=== PATIENT | male | born 1955 | race Two or more races ===

== ENCOUNTER 2022-10-26 19:44 | Inpatient (IN) | payer MEDICARE, OTHER ==
[~2022-10-26] VITALS: Ht 152.4 cm; Wt 83.5 kg
[2022-10-26 23:10] VITALS: BP 247/85
[2022-10-26 23:30] VITALS: BP 247/85
--- NOTE | 2022-10-26 23:30 | NUR ---
COOKER MECHANICDIGITAL ASSET SPECIALIST NOTES RECEIVED DIRECT ADMIT FROM [place] VIA AMBULANCE TRANSPORT THIS 67 YO MALE,SPEAK KYRGYZ,UNDERSTAND LITTLE URDU.A/ALERT,ORIENTED X3,NO SOB NOTED.SALINE LOCK RIGHT HAND INTACT AND PATENT.LEGALLY BLIND,NO SKIN ISSUES.WITH LEFT UPPER AV SHUNT FOR HD ACCESS,HAD ONE TODAY LAST FOR 3.5 HOURS.WITH CHIEF COMPLAINTS OF CHEST PAIN POST HD TREATMENT.ABLE TO AMBULATE WITH ASSISTANCE,DENIES CHEST PAIN AT THE MOMENT.BLOOD PRESSURE ON THE HIGH SIDE 247/85,HOSPITALIST NAY MADE AWARE..COPY OF HOME MEDICATIONS FORWARDED TO HOSPITALIST.WILL CONTINUE TO MONITOR STATUS,CALL LIGHT IN REACH,NEEDS ANTICIPATED
[2022-10-27] VITALS: BP 120/64
--- NOTE | 2022-10-27 00:15 | NUR ---
CISCO CERTIFIED INTERNETWORK EXPERT NOTES HOSPITALIST VISIT NAY DUVALL,AT BEDSIDE.WILL CONTINUE TO MONITOR STATUS.
[2022-10-27 00:30] VITALS: BP 120/64
[2022-10-27] MEDS ORDERED: Z GUARD REMEDY 4 OZ OINT TP PRN (00:30)
[2022-10-27] MEDS ORDERED: ONDANSETRON HCL/PF 4 MG/2 ML VIAL IVP PRN (00:30)
[2022-10-27] MEDS ORDERED: hydrALAZINE HCL 50 MG TABLET PO ONE (00:30)
[2022-10-27] MEDS ORDERED: DEXTROSE 50%-WATER 50 ML DISP.SYRIN IV PRN (00:30)
[2022-10-27] MEDS ORDERED: CLONIDINE HCL 0.1 MG TABLET PO ONE (00:30)
[2022-10-27] MEDS ORDERED: HYDROMORPHONE INJ 2 MG/ML DISP.SYRIN IV PRN (00:30)
[2022-10-27] MEDS: NITROGLYCERIN PACKET 1 GM PACKET TOP SCH ×3 (00:44→21:00)
--- NOTE | 2022-10-27 00:44 | NUR ---
CENTRAL SCHEDULER NOTES BP 247/85,HOSPITALIST NAY ORELLANA,WITH NEW ORDER NOTED AND CARRIED OUT. NITRO BID 1GM TOPICAL APPLIED TO LEFT CHEST WALL.
--- NOTE | 2022-10-27 00:45 | NUR ---
SOLID WASTE DIVISION SUPERVISOR NOTES GIVEN CATAPRES 0.1MG PO AND APRESOLINE 50MG PO X 1 DOSE ORDERED.WILL RECHECK IN AN HOUR.
--- NOTE | 2022-10-27 01:00 | NUR ---
STATION INSPECTOR NOTES LATEST BP 120/64,PULSE 85.HOSPITALIST NAY MADE AWARE.
[2022-10-27] MEDS ORDERED: RANO500T3 PO (02:53)
[2022-10-27] MEDS ORDERED: SEVE800T8 PO (02:53)
[2022-10-27] MEDS ORDERED: ATOR40TA PO (02:53)
[2022-10-27] MEDS ORDERED: NITR0.4T48 SL (02:53)
[2022-10-27] MEDS ORDERED: CARV6.252 PO (02:53)
[2022-10-27] MEDS ORDERED: ASPI-1100 PO (02:53)
[2022-10-27] MEDS ORDERED: SIME40DR2 PO (02:53)
[2022-10-27] MEDS ORDERED: CLOP75TA15 PO (02:53)
[2022-10-27] MEDS ORDERED: LOSA100T31 PO (02:53)
[2022-10-27 06:40] LABS: ALANINE AMINOTRANSFERASE 13 U/L (12-78); ALBUMIN 3.9 g/dL (3.4-5.0); ALKALINE PHOSPHATASE 61 U/L (46-116); ASPARTATE AMINOTRANSFERASE 11 U/L (15-37); BILIRUBIN,TOTAL 0.6 mg/dL (0.2-1.0); CALCIUM, SERUM 9.6 mg/dL (8.5-10.1); CARBON DIOXIDE 31 mmol/L (21-32); CHLORIDE 93 mmol/L (98-107); GLUCOSE 180 mg/dL (74-106); MAGNESIUM 2.4 mg/dL (1.8-2.4); POTASSIUM 4.4 mmol/L (3.5-5.1); SODIUM SERUM 136 mmol/L (136-145); TOTAL PROTEIN, SERUM 7.7 g/dL (6.4-8.2); UREA NITROGEN, BLOOD 39 mg/dL (7-18)
[2022-10-27 06:41] LABS: CREATININE 8.7 mg/dL (0.6-1.3)
[2022-10-27 06:42] LABS: BASOPHILS # (AUTO) 0.1 K/uL (0.0-0.2); BASOPHILS % (AUTO) 1.2 % (0.0-2.0); EOSINOPHILS % (AUTO) 11.2 % (0.0-6.0); HEMATOCRIT 35 % (39-51); HEMOGLOBIN 11.5 g/dL (13.5-17.5); LYMPHOCYTES # (AUTO) 1.3 K/uL (0.8-4.8); LYMPHOCYTES % (AUTO) 16.6 % (20.0-44.0); MEAN CORPUSCULAR HGB CONC 33 g/dl (31.0-36.0); MEAN CORPUSCULAR VOLUME 89 fL (80-96); MONOCYTES # (AUTO) 0.6 K/uL (0.1-1.30); MONOCYTES % (AUTO) 7.8 % (2.0-12.0); NEUTROPHILS # (AUTO) 4.9 K/uL (1.8-8.9); NEUTROPHILS % (AUTO) 63.2 % (43.0-81.0); PLATELET COUNT (AUTO) 173 K/uL (150-450); RED BLOOD CELL COUNT(AUTO) 3.94 MIL/uL (4.5-6.0); WHITE BLOOD COUNT (AUTO) 7.8 K/uL (4.3-11.0)
--- NOTE | 2022-10-27 06:42 | NUR ---
FRONT SERVICES AGENT NOTES AWAKE,ON SITTING POSITION THIS TIME ON BED.DENIES CHEST PAIN,BLOOD PRESSURE ELEVATED.DENIES HEADACHE,NO NAUSEA.ASSIST WITH ADL'S,LEGALLY BLIND.CALL LIGHT IN REACH,NEEDS ATTENDED.
[2022-10-27] MEDS: BLOOD SUGAR DIAGNOSTIC 1 EACH STRIP IN SCH ×4 (06:52→21:36)
[2022-10-27] MEDS: hydrALAZINE HCL IV 20 MG VIAL IV PRN (07:08)
--- NOTE | 2022-10-27 07:08 | NUR ---
GAUGE MAKER NOTES LATEST BP 175/60,PULSE-80,MEDICATED WITH APRESOLINE 10MG IV FOR SBP>160. ORDERED.ENDORSED TO SANDRA FELICIANO FOR RAMESH.
--- NOTE | 2022-10-27 07:19 | NUR ---
SLOT SHIFT SUPERVISOR OPENING NOTES RECEIVED PATIENT A/O X 4, ABLE TO MAKE NEEDS KNOWN. PATIENT IS ON OXYGEN AT 2LPM VIA NASAL CANULA, SATURATING AT 99% WITH NO SIGNS OF RESPIRATORY DISTRESS. ,WITH HEPLOCK RIGHT HAND #20G, PATENT AND INTACT. WITH LEFT UPPER ARM AV FISTULA POSITIVE FOR THRILL AND BRUIT. ON EXTERNAL PRODUCT STEWARD: SINUS RHYTHM WITH BBB. SAFETY MEASURES IN PLACE; BED IN LOW, LOCKED POSITION; SIDE RAILS UP X 2, CALL LIGHT WITHIN REACH AT ALL TIMES; WILL CONTINUE WITH PLAN OF CARE.
[2022-10-27 07:39] LABS: CHOLESTEROL 159 mg/dL (<200); HDL CHOLESTEROL 44 mg/dL (40-60); LDL 89 mg/dL (0-99); TRIGLYCERIDES 190 mg/dL (30-150)
[2022-10-27 08:00] VITALS: BP 190/88
[2022-10-27] MEDS: CLOPIDOGREL BISULFATE 75 MG TABLET PO SCH (09:15)
[2022-10-27] MEDS: LOSARTAN POTASSIUM 50 MG TABLET PO SCH (09:17)
[2022-10-27] MEDS: RANOLAZINE 500 MG TAB.ER.12H PO SCH ×2 (09:17→17:38)
[2022-10-27] MEDS: ASPIRIN 81 MG TAB.CHEW PO SCH (09:18)
[2022-10-27] MEDS: CARVEDILOL 6.25 MG TABLET PO SCH ×2 (09:18→17:41)
[2022-10-27] MEDS: SEVELAMER CARBONATE 800 MG POWD.PACK PO SCH ×3 (09:18→17:38)
[2022-10-27] MEDS: PANTOPRAZOLE 40 MG TABLET.DR PO SCH (09:20)
[2022-10-27] MEDS: HEPARIN SODIUM, PORCINE 5000 UNITS/1 ML VIAL SQ SCH ×2 (09:30→20:59)
[2022-10-27] MEDS: METOPROLOL TARTRATE INJ 5 MG/5 ML AMPUL IVP PRN ×3 (11:35→11:45)
[2022-10-27] MEDS ORDERED: METOPROLOL TARTRATE INJ 5 MG/5 ML AMPUL ONE (11:36)
[2022-10-27] MEDS ORDERED: CT SWABBABLE VALVE TRANS SET 1 EA INFUS.SET MC ONE (11:39)
[2022-10-27] MEDS ORDERED: IOHEXOL-350 100 ML VIAL IV ONE (11:39)
[2022-10-27] MEDS ORDERED: IV NS 0.9% 500 ML IV ONE (11:40)
--- NOTE | 2022-10-27 11:58 | NUR ---
/ CTCA / nitroglycerin SL 0.4mg not given d/t patient is on nitro patch.
[2022-10-27 12:00] VITALS: BP 155/73
[2022-10-27] MEDS ORDERED: NITROGLYCERIN 0.4 MG/TAB BOTTLE SL ONE (12:00)
--- NOTE | 2022-10-27 12:05 | NUR ---
CONTROLLER MECHANIC NOTE PATIENT ON RADIOLOGY DEPARTMENT FOR CT ANGIO ORDERED.
[2022-10-27] MEDS: METOPROLOL TARTRATE 50 MG TABLET PO SCH ×2 (14:20→17:40)
--- NOTE | 2022-10-27 14:20 | NUR ---
HAULPAK DRIVER NOTE HEMODIALYSIS DONE ORDERED. 1 LITER OUT.
[2022-10-27 16:00] VITALS: BP_SYST 130; BP_SYST 170; BP_DIAS 60; BP_DIAS 68
[2022-10-27] MEDS: ATORVASTATIN 40 MG TABLET PO SCH (17:41)
--- NOTE | 2022-10-27 18:44 | NUR ---
ASSOCIATE SOFTWARE DEVELOPMENT ENGINEER CLOSING NOTES PATIENT A/O X 4, ABLE TO MAKE NEEDS KNOWN. PATIENT IS ON OXYGEN AT 2LPM VIA NASAL CANULA, SATURATING AT 99% WITH NO SIGNS OF RESPIRATORY DISTRESS. ,WITH HEPLOCK RIGHT HAND #20G, WITH LEFT AC G 20, PATENT AND INTACT. WITH LEFT UPPER ARM AV FISTULA POSITIVE FOR THRILL AND BRUIT. ON EXTERNAL GARBAGE WORKER: SINUS RHYTHM WITH BBB. SAFETY MEASURES IN PLACE; BED IN LOW, LOCKED POSITION; SIDE RAILS UP X 2, CALL LIGHT WITHIN REACH AT ALL TIMES; WILL ENDORSE TO NEXT SHIFT FOR CONTINUITY OF CARE.
[2022-10-27 20:00] VITALS: BP 127/79
--- NOTE | 2022-10-27 20:20 | NUR ---
found patient at he head of the bed in bed an his knees facing the wall and going up and down the wall with his hands pt speaks american In american we asked him if he wants the light off /go to the bathroom / has pain/ his answer is no. able to talk him into sitting in the bed support with pillows call placed to the daughter and asked er to come sit with him for safety, she agreed to come in. /
--- NOTE | 2022-10-27 20:38 | NUR ---
received in bed family at the bed side bed alarm turned onpt smiling and alert skin warm and dry
[2022-10-27] MEDS: SIMETHICONE SUSP 40 MG/0.6 ML BOTTLE PO SCH (21:19)
[2022-10-27] MEDS: INSULIN REGULAR, HUMAN 100 UNIT/ML 3 ML VIAL SQ PRN (21:40)
[2022-10-28] VITALS: BP 133/55
[2022-10-28] MEDS: METOPROLOL TARTRATE 50 MG TABLET PO SCH ×5 (00:21→23:52)
--- NOTE | 2022-10-28 04:19 | NUR ---
CLOSING NOTES: PATIENT IS BLIND SUPPORTIVE FAMILY AFTER FAMILY LEFT LAST NIGHT NOTED HE BECAME RESTLESS AND HAD ODD BEHAVIOR ATTEMPTING TO STAND UP WHILE IN HIS BED FACING THE WALL HE KNELT AT THE HEAD OF THE BED PULLING THE CALL LIGHT OUT OF THE WALL, FAMILY MEMBER CAME AND SAT WITH THE PATIENT UNTIL 3AM SIDE RAILS UP BED ALARM ON FREQ BED CHECKS hd ORDERED FOR THIS AM 8am AND THE PT npo FOR SCHEDULE MRI ABD TODAY ABD ROUND AND ZAIRA BS +
[2022-10-28 05:37] VITALS: BP 184/92
[2022-10-28] MEDS: BLOOD SUGAR DIAGNOSTIC 1 EACH STRIP IN SCH ×4 (05:49→22:06)
[2022-10-28 05:56] LABS: BASOPHILS # (AUTO) 0.1 K/uL (0.0-0.2); EOSINOPHILS % (AUTO) 10.8 % (0.0-6.0); HEMATOCRIT 33 % (39-51); HEMOGLOBIN 11.1 g/dL (13.5-17.5); LYMPHOCYTES # (AUTO) 1.5 K/uL (0.8-4.8); LYMPHOCYTES % (AUTO) 16.1 % (20.0-44.0); MEAN CORPUSCULAR HGB CONC 33 g/dl (31.0-36.0); MEAN CORPUSCULAR VOLUME 89 fL (80-96); MONOCYTES # (AUTO) 0.4 K/uL (0.1-1.30); MONOCYTES % (AUTO) 4.4 % (2.0-12.0); NEUTROPHILS # (AUTO) 6.2 K/uL (1.8-8.9); NEUTROPHILS % (AUTO) 67.7 % (43.0-81.0); PLATELET COUNT (AUTO) 163 K/uL (150-450); RED BLOOD CELL COUNT(AUTO) 3.74 MIL/uL (4.5-6.0); WHITE BLOOD COUNT (AUTO) 9.1 K/uL (4.3-11.0)
[2022-10-28 06:22] LABS: CALCIUM, SERUM 9.5 mg/dL (8.5-10.1); MAGNESIUM 2.4 mg/dL (1.8-2.4); PHOSPHORUS 7.5 mg/dL (2.5-4.9)
[2022-10-28 06:23] LABS: CREATININE 8.7 mg/dL (0.6-1.3)
--- NOTE | 2022-10-28 07:18 | NUR ---
QUALITY ASSURANCE QA LAB TECHNICIAN OPENING NOTES RECEIVED PATIENT A/O X 3, ABLE TO MAKE NEEDS KNOWN. PATIENT IS ON ROOM AIR SATURATING AT 96% WITH NO SIGNS OF RESPIRATORY DISTRESS. ,WITH HEPLOCK RIGHT HAND AND RIGHT AC #20G, PATENT AND INTACT. WITH LEFT UPPER ARM AV FISTULA POSITIVE FOR THRILL AND BRUIT. ON EXTERNAL CLOTH WASHER: SINUS RHYTHM WITH BBB. SAFETY MEASURES IN PLACE; BED IN LOW, LOCKED POSITION; SIDE RAILS UP X 2, CALL LIGHT WITHIN REACH AT ALL TIMES; WILL CONTINUE WITH PLAN OF CARE.
[2022-10-28 08:00] VITALS: BP 185/70
[2022-10-28] MEDS: hydrALAZINE HCL IV 20 MG VIAL IV PRN (08:11)
--- NOTE | 2022-10-28 08:20 | NUR ---
PARAMEDICAL AIDE NOTE HYDRALAZINE IV GIVEN ORDERED. PATIENT ABG'S DONE BY RT. PATIENT PICKED UP FOR CT SCAN ORDERED. IN STABLE CONDITION.
[2022-10-28 08:27] LABS: ABG BASE EXCESS 1.7 mmol/L; ABG OXYGEN SATURATION 77.7 % (92.0-98.5); ABG PCO2 44.7 mmHg (35.0-45.0); ABG PH 7.397 (7.350-7.450); ABG PO2 43.6 mmHg (75.0-100.0); AaDO2 52.6 mmHg; COHb 2.1 % (0.5-1.5); MetHb 0.3 % (0.0-1.5); O2Hb 75.8 % (94.0-97.0); SITE, ABG Right Radial; VENT MODE, BG R/A 21%
[2022-10-28] MEDS ORDERED: IOHEXOL-300 100 ML VIAL IV ONE (08:49)
[2022-10-28] MEDS ORDERED: IV NS 0.9% 250 ML IV ONE (08:49)
[2022-10-28] MEDS: SEVELAMER CARBONATE 800 MG POWD.PACK PO SCH ×3 (09:33→17:28)
[2022-10-28] MEDS: CARVEDILOL 6.25 MG TABLET PO SCH ×2 (09:34→17:29)
[2022-10-28] MEDS: NITROGLYCERIN PACKET 1 GM PACKET TOP SCH ×2 (09:34→22:08)
[2022-10-28] MEDS: CLOPIDOGREL BISULFATE 75 MG TABLET PO SCH (09:35)
[2022-10-28] MEDS: PANTOPRAZOLE 40 MG TABLET.DR PO SCH (09:35)
[2022-10-28] MEDS: RANOLAZINE 500 MG TAB.ER.12H PO SCH ×2 (09:35→17:29)
[2022-10-28] MEDS: ASPIRIN 81 MG TAB.CHEW PO SCH (09:35)
[2022-10-28] MEDS: LOSARTAN POTASSIUM 50 MG TABLET PO SCH (09:35)
[2022-10-28] MEDS: HEPARIN SODIUM, PORCINE 5000 UNITS/1 ML VIAL SQ SCH ×2 (10:30→22:05)
[2022-10-28 12:00] VITALS: BP 175/68
[2022-10-28 16:00] VITALS: BP 101/49
--- NOTE | 2022-10-28 17:00 | NUR ---
PLANT ANATOMY TEACHER CLOSING NOTES PATIENT A/O X 4, ABLE TO MAKE NEEDS KNOWN. PATIENT IS ON OXYGEN AT 2LPM VIA NASAL CANULA, SATURATING AT 99% WITH NO SIGNS OF RESPIRATORY DISTRESS. ,WITH HEPLOCK RIGHT HAND #20G, WITH LEFT AC G 20, PATENT AND INTACT. WITH LEFT UPPER ARM AV FISTULA POSITIVE FOR THRILL AND BRUIT. ON EXTERNAL DIE ENGRAVER: SINUS RHYTHM WITH BBB. SAFETY MEASURES IN PLACE; BED IN LOW, LOCKED POSITION; SIDE RAILS UP X 2, CALL LIGHT WITHIN REACH AT ALL TIMES; WILL ENDORSE TO NEXT SHIFT FOR CONTINUITY OF CARE. Addendum: 10/28/22 at 1948 by SANDRA YOUNG RN CHARTING FOR 1899
[2022-10-28] MEDS: ATORVASTATIN 40 MG TABLET PO SCH (17:29)
--- NOTE | 2022-10-28 18:30 | NUR ---
DIRECTOR GLOBAL MEDICAL AFFAIRS NOTE SECURED CONSENT FOR PROCEDURE RELAYED BY RHONDA OF HISTOPATHOLOGIST. CONSENT ATTACHED TO CHART.
--- NOTE | 2022-10-28 19:00 | NUR ---
received Mr. Fya in bed alert to family at his bedside speaking greek pt is blind bed alarm is on family member is willing to stay the night for the patient's safety and comfort Mr. Fay at night becomes confused and will stand up in his bed attempt to get OOB unassisted skin warm and dry left arm AV shunt +thrill
[2022-10-28 20:00] VITALS: BP 143/60
[2022-10-28] MEDS: ACETAMINOPHEN 325 MG TABLET PO PRN (20:04)
--- NOTE | 2022-10-28 21:23 | NUR ---
amb to the bathroom with nurse for assist d/t his blindness good form BM hands cleaned and assisted back to be alarm on family member at the bedside
[2022-10-28] MEDS: SIMETHICONE SUSP 40 MG/0.6 ML BOTTLE PO SCH (22:06)
[2022-10-28] MEDS: INSULIN REGULAR, HUMAN 100 UNIT/ML 3 ML VIAL SQ PRN (22:16)
[2022-10-29] VITALS: BP 176/37
[2022-10-29 01:12] VITALS: BP 176/37
[2022-10-29] MEDS: hydrALAZINE HCL IV 20 MG VIAL IV PRN ×2 (01:16→08:34)
[2022-10-29] MEDS: METOPROLOL TARTRATE 50 MG TABLET PO SCH ×3 (05:32→17:11)
[2022-10-29 05:49] LABS: BASOPHILS # (AUTO) 0.1 K/uL (0.0-0.2); BASOPHILS % (AUTO) 0.8 % (0.0-2.0); HEMATOCRIT 32 % (39-51); HEMOGLOBIN 10.4 g/dL (13.5-17.5); LYMPHOCYTES # (AUTO) 1.4 K/uL (0.8-4.8); LYMPHOCYTES % (AUTO) 19.1 % (20.0-44.0); MEAN CORPUSCULAR HGB CONC 33 g/dl (31.0-36.0); MEAN CORPUSCULAR VOLUME 90 fL (80-96); MONOCYTES # (AUTO) 0.6 K/uL (0.1-1.30); NEUTROPHILS # (AUTO) 3.7 K/uL (1.8-8.9); NEUTROPHILS % (AUTO) 49.1 % (43.0-81.0); PLATELET COUNT (AUTO) 145 K/uL (150-450); RED BLOOD CELL COUNT(AUTO) 3.56 MIL/uL (4.5-6.0); WHITE BLOOD COUNT (AUTO) 7.5 K/uL (4.3-11.0)
[2022-10-29] MEDS: BLOOD SUGAR DIAGNOSTIC 1 EACH STRIP IN SCH ×4 (06:37→21:28)
[2022-10-29 06:39] LABS: MAGNESIUM 2.5 mg/dL (1.8-2.4); PHOSPHORUS 6.8 mg/dL (2.5-4.9); POTASSIUM 4.9 mmol/L (3.5-5.1)
[2022-10-29 07:00] VITALS: BP 222/67
--- NOTE | 2022-10-29 07:00 | NUR ---
WATER REGISTRAR CLOSING NOTE PATIENT IN BED, ALERT AND ORIENTED X 3, CONFUSED DURING NIGHT; ON ROOM AIR, BREATHING EVENLY AND NO RESPIRATORY DISTRESS NOTED; WITH FISTULA ON CAROLE AND IV ACCESS ON RIGHT HAND G20 - SALINE LOCK, INTACT AND PATENT; HOOKED TO EXTRACTIONS TECHNICIAN CURRENTLY READING SINUS RHYTHM; ADMINISTERED MEDICATIONS PRESCRIBED; NO COMPLAINS OF PAIN AND DISCOMFORT AT THIS TIME; ADMINISTERED 4 UNITS OF INSULIN AT 2216H BASED ON SLIDING SCALE; SAFETY PRECAUTIONS IN PLACED, BED IN LOW POSITION, LOCKED, SIDE RAILS UP X 3, CALL LIGHT WITHIN REACH; WILL ENDORSE TO MORNING SHIFT NURSE FOR CONTINUITY OF CARE
[2022-10-29 07:03] LABS: CREATININE 8.2 mg/dL (0.6-1.3)
[2022-10-29] MEDS: PANTOPRAZOLE 40 MG TABLET.DR PO SCH (07:30)
--- NOTE | 2022-10-29 07:50 | NUR ---
SEARCH DIRECTOR OPENING NOTE PATIENT IN BED, ALERT AND ORIENTED X 3. ON ROOM AIR, BREATHING EVENLY AND NO RESPIRATORY DISTRESS NOTED; WITH FISTULA ON CAROLE AND IV ACCESS ON RIGHT HAND G20 - SALINE LOCK, INTACT AND PATENT; HOOKED TO FIREFIGHTER CURRENTLY READING SINUS RHYTHM NO COMPLAINS OF PAIN AND DISCOMFORT AT THIS TIME; SAFETY PRECAUTIONS IN PLACED, BED IN LOW POSITION, LOCKED, SIDE RAILS UP X 3, CALL LIGHT WITHIN REACH; WILL CONTINUE TO MONITOR
[2022-10-29] MEDS ORDERED: IODIXANOL 320MG/ML 50 ML IV ONE ×2 (08:30→09:18)
[2022-10-29] MEDS ORDERED: LIDOCAINE 1% INJ 50 ML MDV IJ ONE (08:43)
[2022-10-29] MEDS ORDERED: hydrALAZINE HCL IV 20 MG VIAL ONE (08:57)
[2022-10-29] MEDS: CLOPIDOGREL BISULFATE 75 MG TABLET PO SCH (10:04)
[2022-10-29] MEDS: ASPIRIN 81 MG TAB.CHEW PO SCH (10:04)
[2022-10-29] MEDS: LOSARTAN POTASSIUM 50 MG TABLET PO SCH (10:04)
[2022-10-29] MEDS: CARVEDILOL 6.25 MG TABLET PO SCH ×2 (10:05→16:27)
[2022-10-29] MEDS: RANOLAZINE 500 MG TAB.ER.12H PO SCH ×2 (10:06→16:26)
[2022-10-29] MEDS: HEPARIN SODIUM, PORCINE 5000 UNITS/1 ML VIAL SQ SCH ×2 (10:08→21:00)
[2022-10-29] MEDS: NITROGLYCERIN PACKET 1 GM PACKET TOP SCH ×2 (10:09→20:38)
[2022-10-29] MEDS ORDERED: IV SET PRIMARY PUMP SET 1 EA INFUS.SET MC ONE (10:21)
[2022-10-29] MEDS ORDERED: IV NS 0.9% 1,000 ML ONE (10:21)
[2022-10-29] MEDS ORDERED: IODIXANOL 320MG/ML 100 ML IV ONE (10:33)
[2022-10-29 12:00] VITALS: BP 163/60
[2022-10-29] MEDS: SEVELAMER CARBONATE 800 MG TABLET PO SCH ×2 (12:04→17:11)
[2022-10-29] MEDS: INSULIN REGULAR, HUMAN 100 UNIT/ML 3 ML VIAL SQ PRN ×2 (12:09→17:05)
[2022-10-29 16:00] VITALS: BP 137/113
[2022-10-29] MEDS: ATORVASTATIN 40 MG TABLET PO SCH (17:10)
--- NOTE | 2022-10-29 18:31 | NUR ---
DERMATOLOGY TEACHER CLOSING NOTE PATIENT IN BED, ALERT AND ORIENTED X 3, ON ROOM AIR, TOLERATING WELL WITH SPO2 OF 98% BREATHING EVENLY AND NO RESPIRATORY DISTRESS NOTED; WITH FISTULA ON CAROLE AND IV ACCESS ON RIGHT HAND G20 - SALINE LOCK, INTACT AND PATENT; HOOKED TO PATIENT CARE PROVIDER CURRENTLY READING SINUS RHYTHM HR62; ADMINISTERED MEDICATIONS PRESCRIBED; NO COMPLAINS OF PAIN AND DISCOMFORT AT THIS TIME; POST LAV FISTULOGRAM PROCEDURE, NO COMPLICATIONS NOTED. SAFETY PRECAUTIONS IN PLACED, BED IN LOW POSITION, LOCKED, SIDE RAILS UP X 3, CALL LIGHT WITHIN REACH; WILL ENDORSE TO NIGHT NURSE.
--- NOTE | 2022-10-29 19:30 | NUR ---
SOAKER OPENING NOTE RECEIVED PATIENT AWAKE IN BED, ALERT AND ORIENTED X 3, PALAUAN SPEAKER AND LEGALLY BLIND; ON ROOM AIR, BREATHING EVEN AND UNLABORED.NO RESPIRATORY DISTRESS NOTED; FISTULA ON CAROLE INTACT AND POSITIVE THRILL AND BRUIT NOTED. NO BLEEDING NOTED.IV ACCESS ON RIGHT HAND G20 - SALINE LOCK, INTACT AND PATENT; ON TELE MONITOR CURRENTLY READING SINUS RHYTHM; FAMILY AT BED SIDE. INFORMED THE PATIENT VIA FLIGHT OPERATIONS ENGINEER THAT THE PATIENT WILL HAVE LEFT HEART CATHETERIZATION TOMORROW MORNING. PATIENT SIGNED THE CONSENT. AND EDUCATE THE PATIENT TO NOT EAT OR DRINK SINCE MIDNIGHT. PATIENT VERBALIZED UNDERSTANDING. NO PAIN AND DISCOMFORT AT THIS TIME; ALL SAFETY PRECAUTIONS IN PLACED, BED IN LOW POSITION, LOCKED, SIDE RAILS UP X 3, CALL LIGHT WITHIN REACH; AT BED SIDE. WILL CONTINUE TO MONITOR CLOSELY.
--- NOTE | 2022-10-29 21:00 | NUR ---
RN NOTES PATIENT WILL HAVE LEFT HEART CATHETERIZATION TOMORROW AT [address] ATSORGA TO HOLD THE MEDICATION, NO RESPONSE. INFORMED FIFTH HAND DOCTOR NUSRAT, HE STATED TO HOLD HEPARIN FOR 2100.
[2022-10-29] MEDS: SIMETHICONE SUSP 40 MG/0.6 ML BOTTLE PO SCH (21:35)
[2022-10-30] VITALS: BP 156/69
[2022-10-30] MEDS: METOPROLOL TARTRATE 50 MG TABLET PO SCH ×5 (00:11→23:56)
[2022-10-30 01:35] LABS: BASOPHILS % (MANUAL) 0 % (0.0-2.0); EOSINOPHILS % (MANUAL) 29 % (0-4); LYMPHOCYTES % (MANUAL) 19 % (16-48); MONOCYTES % (MANUAL) 7 % (0-11.0); NEUTROPHILS % (MANUAL) 45 (42-76)
[2022-10-30 05:00] VITALS: BP 169/81
[2022-10-30] MEDS: BLOOD SUGAR DIAGNOSTIC 1 EACH STRIP IN SCH ×4 (06:32→21:38)
[2022-10-30 07:00] VITALS: BP 199/54
--- NOTE | 2022-10-30 07:20 | NUR ---
ms rn received on bed, awake,blind male, oriented x3,will be having cardiac cath today.
[2022-10-30] MEDS: PANTOPRAZOLE 40 MG TABLET.DR PO SCH (07:30)
--- NOTE | 2022-10-30 07:30 | NUR ---
CORPORATE AUDITOR CLOSING NOTE PATIENT AWAKE IN BED, ALERT AND ORIENTED X 3, ESTONIAN SPEAKER AND LEGALLY BLIND; ON ROOM AIR, BREATHING EVEN AND UNLABORED.NO RESPIRATORY DISTRESS NOTED; FISTULA ON CAROLE INTACT AND POSITIVE THRILL AND BRUIT NOTED. NO BLEEDING NOTED.IV ACCESS ON RIGHT HAND G20 - SALINE LOCK, INTACT AND PATENT; ON TELE MONITOR CURRENTLY READING SINUS RHYTHM. PATIENT WILL HAVE LEFT HEART CATHETERIZATION THIS MORNING. PATIENT SIGNED THE CONSENT. AND EDUCATE THE PATIENT TO NOT EAT OR DRINK SINCE MIDNIGHT. PATIENT VERBALIZED UNDERSTANDING. NO PAIN AND DISCOMFORT AT THIS TIME; ALL DUE MEDS GIVEN ORDERED.ALL SAFETY PRECAUTIONS IN PLACED, BED IN LOW POSITION, LOCKED, SIDE RAILS UP X 3, CALL LIGHT WITHIN REACH; AT BED SIDE. WILL ENDORSE FOR RAMESH.
[2022-10-30] MEDS ORDERED: IV SET PRIMARY PUMP SET 1 EA INFUS.SET MC ONE (07:56)
[2022-10-30] MEDS ORDERED: IV NS 0.9% 1,000 ML ONE (07:56)
[2022-10-30] MEDS ORDERED: NITROGLYCERIN IN 5 % DEXTROSE 250 ML IV ONE (07:57)
[2022-10-30] MEDS ORDERED: IODIXANOL 150 ML IV ONE (07:57)
[2022-10-30] MEDS ORDERED: LIDOCAINE 1% INJ 50 ML MDV IJ ONE (07:57)
[2022-10-30] MEDS: SEVELAMER CARBONATE 800 MG TABLET PO SCH ×3 (08:00→18:55)
--- NOTE | 2022-10-30 08:05 | NUR ---
ms rn called daughter, made aware that jung will be having cardiac cath and she is ok w/ that.
[2022-10-30] MEDS: CLOPIDOGREL BISULFATE 75 MG TABLET PO SCH (08:15)
[2022-10-30] MEDS: HEPARIN SODIUM, PORCINE 5000 UNITS/1 ML VIAL SQ SCH ×2 (08:15→21:16)
--- NOTE | 2022-10-30 08:15 | NUR ---
ms rn patient wet down for procedure.
[2022-10-30] MEDS: ASPIRIN 81 MG TAB.CHEW PO SCH (09:00)
[2022-10-30] MEDS: RANOLAZINE 500 MG TAB.ER.12H PO SCH ×2 (09:00→18:56)
[2022-10-30] MEDS: CARVEDILOL 6.25 MG TABLET PO SCH ×2 (09:00→18:56)
[2022-10-30] MEDS: LOSARTAN POTASSIUM 50 MG TABLET PO SCH (09:00)
[2022-10-30] MEDS ORDERED: FENTANYL PF 100MCG/2ML AMPUL ONE (09:07)
[2022-10-30] MEDS ORDERED: MIDAZOLAM HCL 2 MG/2ML VIAL ONE (09:07)
[2022-10-30] MEDS ORDERED: NICARDIPINE HCL 25 MG/10 ML VIAL IV ONE (09:27)
[2022-10-30] MEDS ORDERED: HEPARIN SODIUM, PORCINE 5000 UNITS/1 ML VIAL ONE (09:50)
[2022-10-30] MEDS ORDERED: HEPARIN SODIUM, PORCINE 1,000 UNIT/ML VIAL ONE (09:51)
[2022-10-30 09:52] LABS: BASOPHILS # (AUTO) 0.1 K/uL (0.0-0.2); BASOPHILS % (AUTO) 0.7 % (0.0-2.0); EOSINOPHILS % (AUTO) 18.1 % (0.0-6.0); HEMATOCRIT 32 % (39-51); HEMOGLOBIN 10.5 g/dL (13.5-17.5); LYMPHOCYTES # (AUTO) 1.2 K/uL (0.8-4.8); LYMPHOCYTES % (AUTO) 15.9 % (20.0-44.0); MEAN CORPUSCULAR HGB CONC 33 g/dl (31.0-36.0); MEAN CORPUSCULAR VOLUME 89 fL (80-96); MONOCYTES # (AUTO) 0.4 K/uL (0.1-1.30); MONOCYTES % (AUTO) 5.2 % (2.0-12.0); NEUTROPHILS # (AUTO) 4.6 K/uL (1.8-8.9); NEUTROPHILS % (AUTO) 60.1 % (43.0-81.0); PLATELET COUNT (AUTO) 155 K/uL (150-450); RED BLOOD CELL COUNT(AUTO) 3.58 MIL/uL (4.5-6.0); WHITE BLOOD COUNT (AUTO) 7.7 K/uL (4.3-11.0)
[2022-10-30 10:17] LABS: CALCIUM, SERUM 8.9 mg/dL (8.5-10.1); MAGNESIUM 2.5 mg/dL (1.8-2.4); POTASSIUM 5.7 mmol/L (3.5-5.1)
[2022-10-30 10:26] LABS: CREATININE 10.8 mg/dL (0.6-1.3); PHOSPHORUS 8.3 mg/dL (2.5-4.9)
--- NOTE | 2022-10-30 11:50 | NUR ---
ms rn patient came back from cardiac cath, awake, oriented x2-3, TR band intact at right wrist, no s/s of active bleeding at this time, denies pain, right hand pulses positive,a little swollen at right hand, all needs attended..
[2022-10-30 12:00] VITALS: BP 167/52
--- NOTE | 2022-10-30 12:15 | NUR ---
ms rn 3cc air deflated from TR band, no s/s of bleeding noted.
--- NOTE | 2022-10-30 12:30 | NUR ---
ms rn another 3 ml of air, deflated from TR band. no bleeding noted.
--- NOTE | 2022-10-30 12:45 | NUR ---
ms rn another 3ml of air deflated for TR band, will monitor for bleeding,no bleeding noted.
--- NOTE | 2022-10-30 13:00 | NUR ---
rn another 3ml deflated, will monitor for bleeding.
[2022-10-30] MEDS: NITROGLYCERIN PACKET 1 GM PACKET TOP SCH ×2 (13:01→21:14)
--- NOTE | 2022-10-30 13:15 | NUR ---
ms bryant anotehr 5ml of air deflated, will monitor site for bleeding.
--- NOTE | 2022-10-30 13:30 | NUR ---
ms rn 3ml of air deflated.
--- NOTE | 2022-10-30 13:45 | NUR ---
ms rn another 3ml deflated from tr band.all needs attended.
[2022-10-30 16:00] VITALS: BP 139/52
[2022-10-30] MEDS: ATORVASTATIN 40 MG TABLET PO SCH (18:55)
--- NOTE | 2022-10-30 18:59 | NUR ---
ms rn just finished hd w/ 1.5 liters out, tolerated well. will monitor patient.
--- NOTE | 2022-10-30 19:30 | NUR ---
REGIONAL CONTROLLER OPENING NOTE RECEIVED PATIENT AWAKE IN BED, ALERT AND ORIENTED X 3, GEORGIAN SPEAKER AND LEGALLY BLIND; AT THE BED SIDE. ON ROOM AIR, BREATHING EVEN AND UNLABORED.NO RESPIRATORY DISTRESS NOTED; FISTULA ON CAROLE INTACT AND POSITIVE THRILL AND BRUIT NOTED. NO BLEEDING NOTED.IV ACCESS ON RIGHT HAND G20 - SALINE LOCK, INTACT AND PATENT; ON TELE MONITOR CURRENTLY READING SINUS RHYTHM; HD TODAY 1.5 L WAS OUT. NO PAIN AND DISCOMFORT AT THIS TIME; S/P OF THE [facility] TODAY. NO BLEEDING NOTED ON THE RIGHT ARM. PATIENT TOLERATED THE PROCEDURE WELL. ALL SAFETY PRECAUTIONS IN PLACED, BED IN LOW POSITION, LOCKED, SIDE RAILS UP X 3, CALL LIGHT WITHIN REACH; WILL CONTINUE TO MONITOR CLOSELY.
[2022-10-30 20:00] VITALS: BP 174/59
[2022-10-30] MEDS: SIMETHICONE SUSP 40 MG/0.6 ML BOTTLE PO SCH (21:21)
[2022-10-30] MEDS: INSULIN REGULAR, HUMAN 100 UNIT/ML 3 ML VIAL SQ PRN (21:40)
[2022-10-31] VITALS: BP 168/51
[2022-10-31 04:00] VITALS: BP 191/73
[2022-10-31] MEDS: ACETAMINOPHEN 325 MG TABLET PO PRN (04:57)
[2022-10-31] MEDS: METOPROLOL TARTRATE 50 MG TABLET PO SCH ×3 (05:02→17:17)
[2022-10-31 06:18] LABS: BASOPHILS # (AUTO) 0.1 K/uL (0.0-0.2); BASOPHILS % (AUTO) 0.9 % (0.0-2.0); EOSINOPHILS % (AUTO) 15.3 % (0.0-6.0); HEMATOCRIT 31 % (39-51); HEMOGLOBIN 10.5 g/dL (13.5-17.5); LYMPHOCYTES # (AUTO) 1.2 K/uL (0.8-4.8); LYMPHOCYTES % (AUTO) 15.9 % (20.0-44.0); MEAN CORPUSCULAR HGB CONC 34 g/dl (31.0-36.0); MEAN CORPUSCULAR VOLUME 88 fL (80-96); MONOCYTES # (AUTO) 0.5 K/uL (0.1-1.30); MONOCYTES % (AUTO) 7.1 % (2.0-12.0); NEUTROPHILS # (AUTO) 4.6 K/uL (1.8-8.9); NEUTROPHILS % (AUTO) 60.8 % (43.0-81.0); PLATELET COUNT (AUTO) 156 K/uL (150-450); RED BLOOD CELL COUNT(AUTO) 3.52 MIL/uL (4.5-6.0); WHITE BLOOD COUNT (AUTO) 7.6 K/uL (4.3-11.0)
[2022-10-31 06:36] LABS: CALCIUM, SERUM 9.1 mg/dL (8.5-10.1); MAGNESIUM 2.4 mg/dL (1.8-2.4); PHOSPHORUS 7.8 mg/dL (2.5-4.9); POTASSIUM 4.7 mmol/L (3.5-5.1)
[2022-10-31 06:45] LABS: CREATININE 8.3 mg/dL (0.6-1.3)
--- NOTE | 2022-10-31 06:51 | NUR ---
TOGGLER CLOSING NOTE PATIENT AWAKE IN BED, ALERT AND ORIENTED X 3, GREEK SPEAKER AND LEGALLY BLIND; ON ROOM AIR, BREATHING EVEN AND UNLABORED.NO RESPIRATORY DISTRESS NOTED; FISTULA ON CAROLE INTACT AND POSITIVE THRILL AND BRUIT NOTED. NO BLEEDING NOTED.IV ACCESS ON LEFT AC G # G22 - SALINE LOCK, INTACT AND PATENT; ON TELE MONITOR CURRENTLY READING SINUS RHYTHM. NO PAIN AND DISCOMFORT AT THIS TIME; ALL DUE MEDS GIVEN ORDERED.ALL SAFETY PRECAUTIONS IN PLACED, BED IN LOW POSITION, LOCKED, SIDE RAILS UP X 3, CALL LIGHT WITHIN REACH; WILL ENDORSE FOR RAMESH.
[2022-10-31] MEDS: BLOOD SUGAR DIAGNOSTIC 1 EACH STRIP IN SCH ×3 (07:02→16:32)
--- NOTE | 2022-10-31 07:05 | NUR ---
DUDE RANCH MANAGER OPENING NOTE PATIENT AWAKE IN BED, ALERT AND ORIENTED X 3, MAORI SPEAKER AND LEGALLY BLIND; ON ROOM AIR, BREATHING EVEN AND UNLABORED. NO SOB OR RESPIRATORY DISTRESS NOTED; FISTULA ON CAROLE INTACT. NO BLEEDING NOTED. IV ACCESS ON LEFT AC G # G22 - SALINE LOCK, INTACT AND PATENT; ON TELE MONITOR CURRENTLY READING SINUS ZHOU WITH 1ST DEGREE AND HR @54BPM. NO PAIN AND DISCOMFORT AT THIS TIME; SAFETY PRECAUTIONS IN PLACE WITH BED IN LOWEST LOCKED POSITION, SIDE RAILS UP X 3, CALL LIGHT AND TRAY WITHIN REACH; WILL CONTINUE TO MONITOR.
[2022-10-31 08:00] VITALS: BP 106/60
[2022-10-31] MEDS: ASPIRIN 81 MG TAB.CHEW PO SCH (08:42)
[2022-10-31] MEDS: RANOLAZINE 500 MG TAB.ER.12H PO SCH ×2 (08:42→17:17)
[2022-10-31] MEDS: PANTOPRAZOLE 40 MG TABLET.DR PO SCH (08:42)
[2022-10-31] MEDS: CLOPIDOGREL BISULFATE 75 MG TABLET PO SCH (08:42)
[2022-10-31] MEDS: LOSARTAN POTASSIUM 50 MG TABLET PO SCH (08:43)
[2022-10-31] MEDS: CARVEDILOL 6.25 MG TABLET PO SCH ×2 (08:44→17:16)
[2022-10-31] MEDS: SEVELAMER CARBONATE 800 MG TABLET PO SCH ×3 (08:44→17:17)
[2022-10-31] MEDS: NITROGLYCERIN PACKET 1 GM PACKET TOP SCH (08:45)
[2022-10-31] MEDS: HEPARIN SODIUM, PORCINE 5000 UNITS/1 ML VIAL SQ SCH (08:46)
[2022-10-31] MEDS: INSULIN REGULAR, HUMAN 100 UNIT/ML 3 ML VIAL SQ PRN ×2 (13:44→16:35)
[2022-10-31] MEDS: ATORVASTATIN 40 MG TABLET PO SCH (17:16)
[2022-10-31 17:17] VITALS: BP 197/65
--- NOTE | 2022-10-31 18:05 | NUR ---
MACHINE FINISHER NOTE PATIENT DISCHARGING TO [facility] IN STABLE CONDITION. PT A/OX4, [place] SPEAKING, ABLE TO MAKE NEEDS KNOWN. ON ROOM AIR WITH SP02 AT 100%. NO SOB OR RESPIRATORY DISTRESS NOTED. LAST TELE READING AT SR HEART RATE 60 BPM. PTS SKIN INTACT BESIDES LEFT ARM, WHICH WAS CLEANED AND DRESSED. PICTURE TAKEN. PATIENT DENIES PAIN AT THIS TIME. PERSONAL ITEMS ACCOUNTED FOR. MEDS RECONCILIATED AND COID TEST READING NEGATIVE. IV ACCESS AND ID BRACELET REMOVED. PATIENT LEFT THE FACILITY AT 1805 ACCOMPANIED BY 2 DIRECTOR OF RECRUITMENT. CALLED SN[facility] AND SPOKE TO HUSAM TO GIVE REPORT. MD AND CHARGE NURSE AWARE OF DISCHARGE.
== END 2022-10-31 18:10 | DRG 252 ==
LOC: TELE 22:58 → MED 10-31 09:51
PROVIDERS: ADMIT Student in an Organized Health Care Education/Training Program; ATTEND Student in an Organized Health Care Education/Training Program
PROC: 5A1D70Z Performance of Urinary Filtration, Intermittent, Less than 6 Hours Per Day (ICD-10-PCS; 2022-10-27)
PROC: 037Y3ZZ Dilation of Upper Artery, Percutaneous Approach (ICD-10-PCS; principal; 2022-10-29)
PROC: B518YZZ Fluoroscopy of Superior Vena Cava using Other Contrast (ICD-10-PCS; 2022-10-29)
PROC: B31JYZZ Fluoroscopy of Left Upper Extremity Arteries using Other Contrast (ICD-10-PCS; 2022-10-29)
PROC: 4A023N7 Measurement of Cardiac Sampling and Pressure, Left Heart, Percutaneous Approach (ICD-10-PCS; 2022-10-30)
PROC: B211YZZ Fluoroscopy of Multiple Coronary Arteries using Other Contrast (ICD-10-PCS; 2022-10-30)
DX: T82.858A Stenosis of other vascular prosthetic devices, implants and grafts, initial encounter (principal); N18.6 End stage renal disease; I25.110 Atherosclerotic heart disease of native coronary artery with unstable angina pectoris; I12.0 Hypertensive chronic kidney disease with stage 5 chronic kidney disease or end stage renal disease; E66.2 Morbid (severe) obesity with alveolar hypoventilation; E44.0 Moderate protein-calorie malnutrition; E87.1 Hypo-osmolality and hyponatremia; T82.510A Breakdown (mechanical) of surgically created arteriovenous fistula, initial encounter; Z20.822 Contact with and (suspected) exposure to COVID-19; E11.65 Type 2 diabetes mellitus with hyperglycemia; D63.8 Anemia in other chronic diseases classified elsewhere; E11.22 Type 2 diabetes mellitus with diabetic chronic kidney disease; E78.5 Hyperlipidemia, unspecified; M89.8X9 Other specified disorders of bone, unspecified site; Z79.82 Long term (current) use of aspirin; Z79.02 Long term (current) use of antithrombotics/antiplatelets; Z79.899 Other long term (current) drug therapy; Z99.2 Dependence on renal dialysis; D64.9 Anemia, unspecified; R91.1 Solitary pulmonary nodule; F17.200 Nicotine dependence, unspecified, uncomplicated; Z68.35 Body mass index [BMI] 35.0-35.9, adult; I70.0 Atherosclerosis of aorta; Y83.2 Surgical operation with anastomosis, bypass or graft as the cause of abnormal reaction of the patient, or of later complication, without mention of misadventure at the time of the procedure; Y92.129 Unspecified place in nursing home as the place of occurrence of the external cause; D35.02 Benign neoplasm of left adrenal gland
CPT/HCPCS: 36415; 36600; 36901; 71270-TC; 74181-TC; 75574; 80048-TC; 80053-TC; 80061-TC; 82803-TC; 82962-TC; 83735-TC; 84100-TC; 84484-TC; 85025-TC; 85347; 85610-TC; 86706; 87081-TC; 87340; 90935-TC; 93307-TC; 94799-TC; C1725; C1753; C1769; C1894; G0378; G0500; J0360; J1644; J1815; J2250; J3010; J3490; J7030; J7040; J7050; Q9967